=== PATIENT | female | born 1955 | race Caucasian/White ===

== ENCOUNTER 2016-12-17 16:59 | Emergency (ER) | payer BC, OTHER ==
[~2016-12-17] VITALS: Ht 165.1 cm; Wt 120.2 kg
[2016-12-17 18:00] LABS: BASOPHILS % (AUTO) 0 % (0-10); EOSINOPHILS # (AUTO) 0.3 10^3/uL (0.0-0.3); EOSINOPHILS % (AUTO) 4 % (0-10); LYMPHOCYTES # (AUTO) 1.6 X 10^3 (1.0-4.0); LYMPHOCYTES % (AUTO) 21 % (12-44); MEAN CORPUSCULAR HEMOGLOBIN 31 PG (25-34); MEAN CORPUSCULAR HGB CONC 33 G/DL (32-36); MEAN CORPUSCULAR VOLUME 94 FL (80-99); MEAN PLATELET VOLUME 10.2 FL (7.4-10.4); MONOCYTES # (AUTO) 0.6 X 10^3 (0.0-1.0); MONOCYTES % (AUTO) 8 % (0-12); NEUTROPHILS % (AUTO) 68 % (42-75); PLATELET COUNT 183 10^3/uL (130-400); RED BLOOD COUNT 3.93 10^6/uL (4.35-5.85); RED CELL DISTRIBUTION WIDTH 13.4 % (10.0-14.5); WHITE BLOOD COUNT 7.4 10^3/uL (4.3-11.0)
--- NOTE | 2016-12-17 18:15 | Diagnostic Imaging Report ---
INDICATION: Chest tightness. COMPARISON: None. FINDINGS: Two views of the chest are obtained. Heart size is normal. The pulmonary vessels appear unremarkable. There is no pneumothorax, mediastinal widening, or pleural fluid demonstrated. The lungs are clear. Osseous structures appear unremarkable. IMPRESSION: No acute abnormality is demonstrated. Dictated by: Dictated on workstation # [id number]
[2016-12-17 18:17] LABS: PROTHROMBIN TIME PATIENT 13.2 SEC (12.2-14.7)
--- NOTE | 2016-12-17 18:23 | ED Chest Pain ---
General Chief Complaint: Chest Pain Stated Complaint: SWELLING IN BOTH ANKLES SENT FROM [facility]RGENT [facility]ARE Nursing Triage Note: ARRIVED VIA AMB TO ROOM 08. COMPLAINS OF CHEST PRESSURE FOR A COUPLE OF DAYS ALONG WITH BILAT LOWER EXT EDEMA. PT IS TRAVELING. Nursing Sepsis Screen: No Definite Risk Source: patient Exam Limitations: no limitations History of Present Illness Time seen by provider: 17:10 Initial Comments This 61-year-old woman presents to the emergency room with complaints of 3 days of lower extremity and hand swelling as well as heaviness over the chest. The heaviness is not really a pain but just a general discomfort. It is worse when active or lying flat. She is visiting from [place] and has no local provider. She has been traveling but states she thought the swelling would've improved after her travels were over. She recently had difficulty with her CPAP machine due to nasal congestion. She has a history of hypertension, diabetes, and sleep apnea. She denies any cardiopulmonary problems that she is aware of. Allergies and Home Medications Allergies Coded Allergies: ketorolac (Verified Allergy, Severe, HIVES, 12/17/16) Review of Systems Constitutional: no symptoms reported EENTM: No Symptoms Reported Respiratory: See HPI Cardiovascular: See HPI Gastrointestinal: No Symptoms Reported Genitourinary: No Symptoms Reported Musculoskeletal: no symptoms reported Skin: no symptoms reported Psychiatric/Neurological: No Symptoms Reported Endocrine: No Symptoms Reported Hematologic/Lymphatic: No Symptoms Reported Past Henfsss-Solqoy-Atckez Hx Patient Social History Alcohol Use: Denies Use Recreational Drug Use: No Smoking Status: Never a Smoker Recent Foreign Travel: No Contact w/Someone Who Travel: No Recent Infectious Disease Expo: No Recent Hopitalizations: No Surgeries History of Surgeries: Yes (HERNIA, D&C, EXP LAP) Surgeries: Abdominal, Hysterectomy, Orthopedic Respiratory History of Respiratory Disorde: Yes Respiratory Disorders: Sleep Apnea Cardiovascular History of Cardiac Disorders: Yes Cardiac Disorders: Hypertension Neurological History of Neurological Disord: No 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 Genitourinary History of Genitourinary Disor: No Gastrointestinal History of Gastrointestinal Di: No Musculoskeletal History of Musculoskeletal Dis: No Endocrine History of Endocrine Disorders: Yes Endocrine Disorders: Diabetes, Non-Insulin dep HEENT History of HEENT Disorders: No Cancer History of Cancer: No Psychosocial History of Psychiatric Problem: No Integumentary History of Skin or Integumenta: No Physical Exam Vital Signs Vital Sign - Last 12Hours 12/17/16 17:16 Temp 98.0 Pulse 64 Resp 18 B/P (MAP) 144/98 Pulse Ox 99 Capillary Refill : Less Than 3 Seconds General Appearance: No Apparent Distress, WD/WN, Obese HEENT: PERRL/EOMI, Normal ENT Inspection Neck: Normal Inspection Respiratory: Lungs Clear, Normal Breath Sounds, No Accessory Muscle Use, No Respiratory Distress Cardiovascular: Regular Rate, Rhythm, No Murmur, Normal Peripheral Pulses, Other (generalized nonpitting edema of the lower extremities, equal bilaterally) Gastrointestinal: Non Tender, Soft Extremity: Pedal Edema Neurologic/Psychiatric: Alert, Oriented x3, No Motor/Sensory Deficits, Normal Mood/Affect, 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 Skin: Normal Color, Warm/Dry Progress/Results/Core Measures Results/Orders Lab Results Laboratory Tests Test 12/17/16 17:48 Range/Units White Blood Count 7.4 4.3-11.0 10^3/uL Red Blood Count 3.93 L 4.35-5.85 10^6/uL Hemoglobin 12.3 11.5-16.0 G/DL Hematocrit 37 35-52 % Mean Corpuscular Volume 94 80-99 FL Mean Corpuscular Hemoglobin 31 25-34 PG Mean Corpuscular Hemoglobin Concent 33 32-36 G/DL Red Cell Distribution Width 13.4 10.0-14.5 % Platelet Count 183 130-400 10^3/uL Mean Platelet Volume 10.2 7.4-10.4 FL Neutrophils (%) (Auto) 68 42-75 % Lymphocytes (%) (Auto) 21 12-44 % Monocytes (%) (Auto) 8 0-12 % Eosinophils (%) (Auto) 4 0-10 % Basophils (%) (Auto) 0 0-10 % Neutrophils # (Auto) 5.0 1.8-7.8 X 10^3 Lymphocytes # (Auto) 1.6 1.0-4.0 X 10^3 Monocytes # (Auto) 0.6 0.0-1.0 X 10^3 Eosinophils # (Auto) 0.3 0.0-0.3 10^3/uL Basophils # (Auto) 0.0 0.0-0.1 10^3/uL Prothrombin Time 13.2 12.2-14.7 SEC INR Comment 1.0 0.8-1.4 Activated Partial Thromboplast Time 27 24-35 SEC Sodium Level 142 135-145 MMOL/L Potassium Level 3.8 3.6-5.0 MMOL/L Chloride Level 105 98-107 MMOL/L Carbon Dioxide Level 27 21-32 MMOL/L Anion Gap 10 5-14 MMOL/L Blood Urea Nitrogen 16 7-18 MG/DL Creatinine 0.84 0.60-1.30 MG/DL Estimat Glomerular Filtration Rate > 60 BUN/Creatinine Ratio 19 Glucose Level 147 H 70-105 MG/DL Calcium Level 9.3 8.5-10.1 MG/DL Magnesium Level 1.8 1.8-2.4 MG/DL Total Bilirubin 0.4 0.1-1.0 MG/DL Aspartate Amino Transf (AST/SGOT) 28 5-34 U/L Alanine Aminotransferase (ALT/SGPT) 32 0-55 U/L Alkaline Phosphatase 82 40-136 U/L Myoglobin 38.9 10.0-92.0 NG/ML Troponin I < 0.30 <0.30 NG/ML B-Type Natriuretic Peptide 107.0 H <100.0 PG/ML Total Protein 6.5 6.4-8.2 GM/DL Albumin 3.7 3.2-4.5 GM/DL My Orders Orders - CARLTON JAIME MD Cbc With Automated Diff (12/17/16 17:27) Magnesium (12/17/16 17:27) Ekg Tracing (12/17/16 17:27) Cardiac Profile 1 (12/17/16 17:) Comprehensive Metabolic Panel (12/17/16 17:) Myoglobin Serum (12/17/16 17:27) Protime With Inr (12/17/16 17:) Partial Thromboplastin Time (12/17/16 17:27) O2 (12/17/16 17:27) Monitor-Rhythm Ecg Trace Only (12/17/16 17:) Saline Lock/Iv-Start (12/17/16 17:27) BNP (12/17/16 17:27) Chest Pa/Lat (2 View) (12/17/16 17:27) Vital Signs/I&O Vital Sign - Last 12Hours 12/17/16 12/17/16 17:16 18:52 Temp 98.0 Pulse 64 53 Resp 18 18 B/P (MAP) 144/98 Pulse Ox 99 98 Blood Pressure Mean: 113 ECG Initial ECG Impression Date: Dec 17, 2016 Initial ECG Impression Time: 17:10 Initial ECG Rate: 59 Initial ECG Rhythm: Normal Sinus Initial ECG Intervals: Normal Initial ECG Impression: Normal Comment Normal sinus rhythm with no ST elevation or depression. No abnormal intervals or axis deviation. Diagnostic Imaging Diagonstic Imaging: Xray Plain Films/CT/US/NM/MRI: chest Comments Chest x-ray viewed by me and report reviewed. See report below: NAME: VIRI HAMILTON [facility] REC#: [id number] PT STATUS: REG ER : 1955 PHYSICIAN: CARLTON JAIME MD ADMIT DATE: 12/17/16/ER Signed Date of Exam: 12/17/16 CHEST PA/LAT (2 VIEW) INDICATION: Chest tightness. COMPARISON: None. FINDINGS: Two views of the chest are obtained. Heart size is normal. The pulmonary vessels appear unremarkable. There is no pneumothorax, mediastinal widening, or pleural fluid demonstrated. The lungs are clear. Osseous structures appear unremarkable. IMPRESSION: No acute abnormality is demonstrated. Dictated by: Dictated on workstation # [id number] Dict: 12/17/161811 Trans: 12/17/161815 Interpreted by: PAVAN LOPEZ DO Electronically signed by: PAVAN LOPEZ DO 12/17/161815 Departure Impression Impression: Primary Impression: Lower extremity edema Additional Impressions: Dyspnea Qualified Codes: R06.00 - Dyspnea, unspecified Chest heaviness Disposition: 01 HOME, SELF-CARE Condition: Stable Departure-Patient Inst. Decision time for Depature: 18:34 Referrals: NO,LOCAL PHYSICIAN (PCP/Family) Primary Care Physician Patient Instructions: Chest Pain (DC), Dependent Edema (DC) Add. Discharge Instructions: Eat a low-sodium (salt) diet and drink plenty of water. Increase your chlorthalidone to one full tablet daily. If this does not improve your swelling after a couple of days, then increase to 2 tablets daily. Follow-up with your primary care provider soon as possible. Return to the emergency room if symptoms worsen. Continue with all of your other medications as previously prescribed and continue to use your CPAP every night. All discharge instructions reviewed with patient and/or family. Voiced understanding. CARLTON JAIME MD Dec 17, 2016 18:23
[2016-12-17 18:27] LABS: ALANINE AMINOTRANSFERASE 32 U/L (0-55); ALBUMIN 3.7 GM/DL (3.2-4.5); ANION GAP 10 MMOL/L (5-14); ASPARTATE AMINO TRANSFERASE 28 U/L (5-34); BILIRUBIN,TOTAL 0.4 MG/DL (0.1-1.0); BLOOD UREA NITROGEN 16 MG/DL (7-18); BUN/CREATININE RATIO 19; CALCIUM 9.3 MG/DL (8.5-10.1); CARBON DIOXIDE 27 MMOL/L (21-32); CHLORIDE 105 MMOL/L (98-107); CREATININE SERUM 0.84 MG/DL (0.60-1.30); GFR ESTIMATED > 60; GLUCOSE 147 MG/DL (70-105); MAGNESIUM 1.8 MG/DL (1.8-2.4); POTASSIUM 3.8 MMOL/L (3.6-5.0); SODIUM 142 MMOL/L (135-145); TOTAL PROTEIN 6.5 GM/DL (6.4-8.2)
[2016-12-17 18:36] LABS: MYOGLOBIN SERUM 38.9 NG/ML (10.0-92.0)
[2016-12-17 18:52] VITALS: BP 128/56
== END 2016-12-17 18:52 | disposition home or self-care (01) ==
LOC: ER 17:01
DX: R60.0 Localized edema (principal); R06.00 Dyspnea, unspecified; R07.89 Other chest pain; I10 Essential (primary) hypertension; E11.9 Type 2 diabetes mellitus without complications; G47.30 Sleep apnea, unspecified; Z90.710 Acquired absence of both cervix and uterus; Z87.19 Personal history of other diseases of the digestive system
CPT/HCPCS: 36415; 71020; 80053; 83735; 83874; 83880; 84484; 85025; 85610; 85730; 93005; 93041